=== PATIENT | female | born 1945 | race African-American/Black ===

== ENCOUNTER → 2019-07-30 | Outpatient (CLI) | payer OTHER, MEDICAID ==
--- NOTE | 2019-07-30 17:29 | KCIC ---
EXAM: Lumbar spine, 6 views. HISTORY: Pain. COMPARISON: 06/18/2018 FINDINGS: 6 views of the lumbar spine are obtained. There is mild lumbar dextroscoliosis centered at L4-L5. There is grade 1 anterolisthesis of L3 on L4 and L4 and L5. There is degenerative facet arthropathy at multiple levels. No fracture is seen. There is suggestion of bone demineralization. There is right hip joint space narrowing with subchondral sclerosis and subchondral cyst formation. IMPRESSION: 1. No acute osseous finding. 2. Multilevel degenerative facet arthropathy involving the lumbar spine. 3. Grade 1 anterolisthesis of L3 on L4 and L4 on L5. The superimposed on lumbar scoliosis. 4. Right hip osteoarthritis. Electronically signed by: Aline Ríos MD (07/30/2019 5:26 PM) [id number]
--- NOTE | 2019-07-30 17:33 | KCIC ---
CHEST PA LATERAL History: Chronic bronchitis Comparison: July 31, 2018 Findings: No consolidation or pleural effusion. Normal heart size. No pneumothorax. Impression: 1. No acute cardiopulmonary process. Electronically signed by: Son Butler DO (07/30/2019 5:30 PM) [id number]
== END ==
LOC: KCIC 13:41
PROVIDERS: ATTEND Family Medicine
DX: M47.816 Spondylosis without myelopathy or radiculopathy, lumbar region (principal); J41.1 Mucopurulent chronic bronchitis; M41.86 Other forms of scoliosis, lumbar region; M16.11 Unilateral primary osteoarthritis, right hip
CPT/HCPCS: 71046; 72110

== ENCOUNTER → 2020-04-09 | Outpatient (CLI) | payer OTHER, MEDICAID ==
--- NOTE | 2020-04-09 14:55 | KCIC ---
EXAM: CHEST PA LATERAL 04/09/2020 12:00 AM CLINICAL INDICATION: Cough since June COMPARISON: Chest radiograph 07/31/2018 TECHNIQUE: PA and lateral views of the chest FINDINGS: The heart and mediastinum are normal. Lungs are well-expanded and clear. No consolidation, pleural effusion, or pneumothorax. Pulmonary vascularity is normal. Slight rightward curvature of spine is unchanged. IMPRESSION: No acute cardiopulmonary abnormality. Electronically signed by: Darlene Chin MD (04/09/2020 2:52 PM) [id number]
--- NOTE | 2020-04-09 15:04 | KCIC ---
EXAM: LUMBAR SPINE MIN 4V 04/09/2020 12:00 AM CLINICAL INDICATION:Left lower back pain into left hip and leg COMPARISON:Lumbar spine radiograph 07/30/2019 TECHNIQUE:5 views of the lumbar spine FINDINGS:There 5 nonrib bearing lumbar vertebral bodies. No acute fracture. Unchanged 3 mm anterolisthesis of L4 and L5 and 2 mm anterolisthesis of L3 on L4. Unchanged mild rightward curvature of the lower lumbar spine. Mild disc space narrowing with small anterior osteophytes throughout the lumbar spine is unchanged. There is severe multilevel facet arthrosis. Severe right and moderate left hip osteoarthrosis. IMPRESSION: 1. No acute osseous abnormality. 2. Unchanged degenerative disc disease and severe multilevel facet arthrosis. Electronically signed by: Darlene Chin MD (04/09/2020 3:00 PM) [id number]
== END ==
LOC: KCIC 09:20
PROVIDERS: ATTEND Family Medicine
DX: M51.36 Other intervertebral disc degeneration, lumbar region (principal); M47.816 Spondylosis without myelopathy or radiculopathy, lumbar region; R05 Cough
CPT/HCPCS: 71046; 72110